=== PATIENT | male | born 1990 ===

== ENCOUNTER 2017-06-19 01:13 | Emergency (ER) | payer OTHER ==
[2017-06-19] MEDS ORDERED: Aspirin 325 mg EC Tablets PO STA (01:55)
[2017-06-19] MEDS ORDERED: Sodium Chloride 0.9% 500 ML IV STA (02:05)
[2017-06-19 02:11] LABS: BASO # 0.2 K/uL (0.0-0.2); BASO % 1.7 % (0.0-2.0); EOS # 0.3 K/uL (0.0-0.7); EOS % 3.4 % (0.0-4.0); HEMOGLOBIN 17.2 g/dL (12.0-18.0); LYMPH # 3.1 K/uL (1.0-4.3); LYMPH % 30.2 % (20.0-40.0); MEAN CORPUSCULAR HEMOGLOBIN 29.5 pg (27.0-31.0); MEAN CORPUSCULAR HGB CONC 34.4 g/dL (33.0-37.0); MEAN PLATELET VOLUME 8.6 fL (7.2-11.7); MONO # 0.7 K/uL (0.0-0.8); NEUT # 5.8 K/uL (1.8-7.0); NEUT % 57.7 % (50.0-75.0); NRBC % 0.1 % (0.0-2.0); RBC 5.82 Mil/uL (4.40-5.90); WHITE BLOOD COUNT 10.1 K/uL (4.8-10.8)
[2017-06-19 02:22] LABS: ALB/GLOB RATIO 1.2 (1.0-2.1); ALBUMIN 4.6 g/dL (3.5-5.0); ALT/SGPT 49 U/L (21-72); AST/SGOT 44 U/L (17-59); BLOOD UREA NITROGEN 14 mg/dL (9-20); CALCIUM 9.3 mg/dl (8.6-10.4); GFR AFRICAN-AMERICAN > 60; GFR NON-AFRICAN AMERICAN > 60
[2017-06-19 03:04] VITALS: O2SAT 98
[2017-06-19] MEDS ORDERED: Iodixanol 320 MG/ML 100 ML BOTTLE IV ONE (03:22)
--- NOTE | 2017-06-19 04:58 | CT ---
EXAM: CT Angiography Chest With Intravenous Contrast CLINICAL HISTORY: 26 years old, male; Pain; Chest pain; Additional info: Chest pain, tachycardia TECHNIQUE: Axial computed tomographic angiography images of the chest with intravenous contrast using pulmonary embolism protocol. All CT scans at this facility use one or more dose reduction techniques, viz.: automated exposure control; ma/kV adjustment per patient size (including targeted exams where dose is matched to indication; i.e. head); or iterative reconstruction technique. MIP reconstructed images were created and reviewed. Coronal and sagittal reformatted images were created and reviewed. CONTRAST: 100 mL of 100ml [id number] administered intravenously. COMPARISON: No relevant prior studies available. FINDINGS: Limitations: Suboptimal timing of bolus. Pulmonary arteries: No definite pulmonary embolism. Aorta: No aneurysm. No dissection. Lungs: No consolidation. Pleural space: No significant effusion. No pneumothorax. Heart: No cardiomegaly. No significant pericardial effusion. Bones/joints: No acute fracture. Soft tissues: Minimal gynecomastia. Lymph nodes: No pathologically enlarged lymph nodes. Liver: Fatty infiltration. IMPRESSION: 1. No definite CT evidence of pulmonary embolism. 2. Incidental/non-acute findings are described above.
--- NOTE | 2017-06-19 05:02 | C.PDOC ---
History Of Present Illness 26 y/o female presents to ER if c/o of midsternal chest pain described as tightness/ pressure which lasts 10 seconds intermittently x5 days. Pt dnies URI sx, SOB, fever. Pt reports recent travel on 05/25 9 flew to [place] from [place] otherwise no recent immobility state, leg cast, trauma, or other coagulability state, Pt is now pain free Time Seen by Provider: 06/19/17 01:30 Chief Complaint (Nursing): Chest Pain History Per: Patient History/Exam Limitations: no limitations Current Symptoms Are (Timing): Gone Quality: Tightness Associated Symptoms: denies: Nausea, Dyspnea, Diaphoresis, Syncope Exacerbating Factors: None Recent travel outside of the [place]: Yes (1 month ago to [place]) Past Medical History Vital Signs: Last Vital Signs Temp 99.5 F 06/19/17 03:03 Pulse 118 H 06/19/17 03:03 Resp 24 06/19/17 03:03 BP 129/85 06/19/17 03:03 Pulse Ox 98 06/19/17 05:01 - Medical History PMH: No Chronic Diseases Family History: States: Unknown Family Hx - Social History Hx Alcohol Use: Yes Hx Substance Use: No - Immunization History Hx Tetanus Toxoid Vaccination: No Hx Influenza Vaccination: No Hx Pneumococcal Vaccination: No Review Of Systems Constitutional: Negative for: Fever Cardiovascular: Positive for: Chest Pain, Palpitations. Negative for: Light Headedness Respiratory: Negative for: Cough, Shortness of Breath, Wheezing Gastrointestinal: Negative for: Nausea, Vomiting, Abdominal Pain Physical Exam - Physical Exam Appears: Well, Non-toxic Eye(s): bilateral: Normal Inspection, PERRL Chest: Symmetrical, No Tenderness Cardiovascular: Rhythm Regular, No Murmur Respiratory: Normal Breath Sounds, No Rhonchi, No Wheezing Gastrointestinal/Abdominal: Normal Exam Back: Normal Inspection, No CVA Tenderness Extremity: Normal ROM, No Swelling Extremity: Bilateral: Atraumatic Neurological/Psych: Oriented x3 Gait: Steady ED Course And Treatment - Laboratory Results Result Diagrams: 06/19/17 02:05 06/19/17 02:05 ECG: Interpreted By Me ECG Rhythm: Sinus Tachycardia (at 128), Nonspecific Changes ECG Interpretation: No Acute Changes O2 Sat by Pulse Oximetry: 98 Pulse Ox Interpretation: Normal - Radiology CXR Interpretation: Yes: No Acute Disease. No: Infiltrates, Cardiomegaly, Pnemothorax - CT Scan/US CTA chest Other Rad Studies (CT/US): Read By Radiologist, Radiology Report Reviewed CT/US Interpretation: FINDINGS: Limitations: Suboptimal timing of bolus. Pulmonary arteries: No definite pulmonary embolism. Aorta: No aneurysm. No dissection. Lungs: No consolidation. Pleural space: No significant effusion. No pneumothorax. Heart: No cardiomegaly. No significant pericardial effusion. Bones/joints: No acute fracture. Soft tissues: Minimal gynecomastia. Lymph nodes: No pathologically enlarged lymph nodes. Liver: Fatty infiltration. IMPRESSION: 1. No definite CT evidence of pulmonary embolism. 2. Incidental/ non-acute findings are described above. Thank you for allowing us to participate in the care of your patient. Dictated and Authenticated by: Rao Hollingsworth MD. 06/19/2017 4:58 AM Eastern Time ([place] & [place]) Progress Note: Labs reviewed - Dimer slight elevation, pt remained stable with 100% oxugen on RA. CTA chest ordered to r/o PE. On reeval pt remined stable, still tachy at 119, improved from initial. CTA chest results d/w pt and pt advised to take tylenol or advil for pain, may continue xanax if nervous or anxious. Pt understands and agrees with plan. Case d/w Dr Gomez who agreed pt is stable for discharge Reassessment Condition: Improved Medical Decision Making Medical Decision Makin26 y/o male obese with CP x 5 days- recent travel Labs incl trop and dimer, ekg, cxr 2- elev dimer CTA chest Reviewed no PE, pt is pain free, vitals remained stable and pt will follow up with pMD Disposition Counseled Patient/Family Regarding: Diagnosis, Need For Followup, Rx Given - Disposition Referrals: [facility] [Outside] Disposition: HOME/ ROUTINE Disposition Time: 05:27 Condition: STABLE Additional Instructions: Take tylenol or motrin for pain May take xanax if anxious Follow up with PMD or in clinic Return to ER if chest cruz, vomiting, difficulty breathing passingsout or worse Instructions: Chest Pain (DC) Forms: [employer] ([place]) - Clinical Impression Clinical Impression: Chest pain, Heart palpitations
[2017-06-19 05:46] VITALS: BP 122/77; PULSE 101; RESP 20; TEMP 99
--- NOTE | 2017-06-19 10:10 | RAD ---
HISTORY: chest pain COMPARISON: No prior. TECHNIQUE: Chest PA and lateral FINDINGS: LUNGS: No active pulmonary disease. PLEURA: No significant pleural effusion identified. No pneumothorax apparent. CARDIOVASCULAR: Normal. OSSEOUS STRUCTURES: No significant abnormalities. VISUALIZED UPPER ABDOMEN: Normal. OTHER FINDINGS: None. IMPRESSION: No active disease.
--- NOTE | 2017-06-21 23:37 | CARD ---
APPROVED REPORT EKG Measurement Heart [id number] OR [id number] <Conclusion> Sinus tachycardia Left axis deviation Minimal voltage criteria for LVH, may be normal variant Abnormal ECG
== END 2017-06-19 05:46 | disposition home or self-care (01) ==
LOC: C.ER 01:13
DX: R07.9 Chest pain, unspecified (principal); R00.2 Palpitations
CPT/HCPCS: 71046; 71275; 80053; 84484; 85025; 85378; 96360; 99284; J7040; Q9967